=== PATIENT | male | born 1940 ===

== ENCOUNTER → 2023-03-30 12:12 | Outpatient (POV) | payer SELFPAY | PROVIDERS: Visit Provider Specialist/Technologist | DX: Z00.00 Encounter for general adult medical examination without abnormal findings (principal) ==

== ENCOUNTER → 2023-04-15 08:41 | Outpatient (POV) | payer SELFPAY | PROVIDERS: Visit Provider Specialist/Technologist | DX: Z00.00 Encounter for general adult medical examination without abnormal findings (principal) ==